=== PATIENT | male | born 1985 | race Two or more races ===

== ENCOUNTER 2020-08-11 17:57 | Emergency (ER) | payer OTHER, SELFPAY ==
[~2020-08-11] VITALS: Ht 165.1 cm; Wt 88.0 kg
[2020-08-11] MEDS ORDERED: HYDROmorphone 1 MG/ML, 1ML INJ IV ONE (18:30)
[2020-08-11] MEDS ORDERED: KETOROLAC 30 MG/1 ML IVPush ONE (18:30)
[2020-08-11] MEDS ORDERED: SODIUM CHLORIDE FLUSH 10ML SYR IVF ONE (18:30)
[2020-08-11] MEDS ORDERED: KETOROLAC 30 MG/1 ML ONE (18:39)
[2020-08-11] MEDS ORDERED: HYDROmorphone 1 MG/ML, 1ML INJ ONE ×2 (18:39→19:50)
--- NOTE | 2020-08-11 18:49 | NUR ---
CC OF LLQ 8/10 PAIN SINCE LAST NIGHT. PT SEEN AT [facility] THIS AM AND DC HOME, PAIN NOT IMPROVING. PTS SO AT BEDSIDE.
--- NOTE | 2020-08-11 19:31 | NUR ---
PT STATES PAIN "JUST CAME BACK, IT'S A BITING PAIN, 02/12"
--- NOTE | 2020-08-11 19:57 | NUR ---
PT UNABLE TO URINATE AT THIS TIME. US AT BEDSIDE
[2020-08-11] MEDS ORDERED: HYDROmorphone 2 MG/ML, 1ML IVPush PRN (20:00)
[2020-08-11 21:35] LABS: MICROSCOPIC AUTO
--- NOTE | 2020-08-11 21:42 | NUR ---
Kylah tran in [facility] - 08/11/20 at 2144 by TANIA PT STILL UNABLE TO URINATE, PT ALSO REFUSING IN AND OUT CATH. ERP AWARE
--- NOTE | 2020-08-11 21:44 | NUR ---
PT ABLE TO PROVIDE UA, UA SENT TO LAB
--- NOTE | 2020-08-11 22:24 | NUR ---
BREAK RN: AT BEDSIDE FOR RECHECK.
[2020-08-11 22:30] VITALS: BP 148/92
== END 2020-08-11 23:01 | disposition home or self-care (01) ==
LOC: ED 19:08
DX: N20.1 Calculus of ureter (principal); R11.0 Nausea; R10.9 Unspecified abdominal pain
CPT/HCPCS: 74176; 76770; 81001; 96374; 96375; 96376; 99285; J1170; J1885